=== PATIENT | male | born 1985 | race Two or more races ===

== ENCOUNTER 2024-10-02 10:31 | Emergency (ER) | payer MEDICAID, SELFPAY ==
[2024-10-02 10:38] VITALS: BP 152/91; PULSE 75; RESP 18; TEMP 36.4; O2SAT 98; BMI 29.8
--- NOTE | 2024-10-02 10:42 | XR_ITS ---
Examination: CT abdomen and pelvis without contrast. Coronal 3-D reconstructions. Sagittal 2-D reconstructions. Date and time of exam:October 02, 2024 1117 hours INDICATIONS: Left-sided flank pain painful urination today CTDI: vol (mGy): 7.88 DLP: (mGycm): 493 Technique: Axial images of the abdomen have been obtained, 3 mm slice thickness Intravenous contrast material has not been administered. Low dose protocols were performed. One or more of the following dose reduction techniques were used; automated exposure control, adjustment of the mA and/or KV according to patient size, use of iterative reconstruction technique. Findings: Diffuse fatty infiltration throughout the liver no focal liver or splenic lesions No gallstones No pancreatic or adrenal mass No renal or ureteral calculi, no hydronephrosis Aorta normal size Normal appendix No bowel obstruction Scattered colonic diverticulosis Contracted urinary bladder IMPRESSION: No renal or ureteral calculi, no hydronephrosis Normal appendix
--- NOTE | 2024-10-02 10:47 | EDRME_ITS ---
Rapid Medical Screening Exam [facility] Arrival date/time: 10/02/24 10:31 38-year-old male presents to the emergency department for complaint of left flank pain with associated nausea. Patient ports symptoms intermittently for the last few months pain worse today Chief Complaint: Urogenital-Male Vital signs: Vital Signs Temperature 97.6 F 10/02/24 10:38 Pulse Rate 75 10/02/24 10:38 Respiratory Rate 18 10/02/24 10:38 Blood Pressure 152/91 H 10/02/24 10:38 Pulse Oximetry (%) 98 10/02/24 10:38 Oxygen Delivery Method Room Air 10/02/24 10:38
[2024-10-02] MEDS: KETOROLAC INJ 30 MG/ML VIAL IM (10:54)
[2024-10-02] MEDS: ONDANSETRON ODT 4 MG TABRAP PO (10:55)
[2024-10-02 11:21] LABS: Basophils % (Auto) 1 % (0-2.5); Eosinophils # (Auto) 0.1 Thou/mm3 (0.0-0.5); Eosinophils % (Auto) 1 % (0-10); Hematocrit 42.4 % (41.0-53.0); Hemoglobin 15.4 g/dL (13.5-16.0); Immature Granulocytes % (Auto) 1 % (0-0); Immature Granulocytes Auto 0.04 Thou/mm3 (0.00-0.00); Lymphocytes % (Auto) 11 % (10-50); Mean Corpuscular HGB Conc 36.3 g/dl (31.0-37.0); Mean Corpuscular Hemoglobin 29.9 pg (25.0-35.0); Mean Corpuscular Volume 82 fL (80-100); Monocytes # (Auto) 0.7 Thou/mm3 (0.0-0.8); Monocytes % (Auto) 7 % (0-12); Neutrophils % (Auto) 79 % (37-80); Nucleated Red Blood Cell % 0 /100 WBC (0); Platelet Count 221 Thou/mm3 (140-440); RDW Standard Deviation 37.2 fL (35.1-43.9); Red Blood Count 5.15 Miln/mm3 (4.50-5.90); White Blood Count 8.8 Thou/mm3 (3.8-10.6)
[2024-10-02 11:33] LABS: Alanine Aminotransferase 86 U/L (10-49); Albumin/Globulin Ratio 1.6 (1.2-2.2); Alkaline Phosphatase 103 U/L (46-116); Anion Gap 10 (7-16); Aspartate Amino Transferase 51 U/L (0-34); BUN/Creatinine Ratio 14 Ratio (12-20); Bilirubin,Total 0.8 mg/dL (0.3-1.2); Blood Urea Nitrogen 13 mg/dL (9-23); Calcium 9.2 mg/dL (8.3-10.6); Calcium (Corrected) 9.2 mg/dL (8.5-10.1); Chloride 103 mMol/L (98-107); Creatinine (Component) 0.9 mg/dL (0.6-1.3); Estimated Creatinine Clearance 107.2 mL/min (>60); Globulin 3.1 gm/dL (2.3-3.5); Glucose 108 mg/dL (74-106); Lipase 30 U/L (12-53); Osmolality,Calculated 280 (275-295); Potassium 3.7 mMol/L (3.4-5.1); Sodium 140 mMol/L (136-145); Total Protein 8.1 gm/dL (5.7-8.2); eGFR > 60 See Note
[2024-10-02 11:40] LABS: Collection Type, Urine Clean Catch; Squamous Epithelial Cell,Urine 0 /hpf (0-5)
[2024-10-02 11:49] LABS: Bilirubin,Urine Negative (Negative); Blood,Urine 2+ (Negative); Clarity,Urine Clear (Clear/Hazy); Color,Urine Yellow (Lt Yel-Yel); Culture Indicated,Urine Not Indicated; Glucose, Urine Negative (Negative); Ketones,Urine Negative (Negative); Leukocyte Esterase,Urine Negative (Negative); Nitrite,Urine Negative (Negative); Protein,Urine 1+ (Neg - Trace); RBC,Urine 95 /hpf (0-3); Specific Gravity,Urine 1.029 (1.001-1.035); Urobilinogen,Urine Negative mg/dL (0.0-1.0); WBC,Urine 3 /hpf (0-5)
--- NOTE | 2024-10-02 12:03 | EDNOTE_ITS ---
ED Male Genitalurinary RME/HPI General Chief complaint: Urogenital-Male Stated complaint: LEFT KIDNEY PAIN X 2 HOURS Time Seen by Provider: 10/02/24 12:03 Arrival date/time: 10/02/24 10:31 38-year-old male presents to the emergency department for complaint of left flank pain with associated nausea. Patient ports symptoms intermittently for the last few months pain worse today Limitations: no limitations RME / HPI RME / HPI Narrative: 10/02/24 10:31 38-year-old male presents to the emergency department for complaint of left flank pain with associated nausea. Patient ports symptoms intermittently for the last few months pain worse today Related Data Previous Rx's ?Medication ?Instructions ?Recorded albuterol sulfate 90 mcg/actuation 1 - 2 puff inhalati on Q6HR PRN 03/06/17 aerosol inhaler (ProAir HFA) WHEEZING #1 inh doxycycline monohydrate 100 mg 100 mg PO BID #20 caps 03/06/17 capsule albuterol sulfate 90 mcg/actuation 2 puff inhalation Q 6H PRN 04/17/23 aerosol inhaler (Ventolin HFA) shortness of breath or wheezing #8.5 grams benzonatate 100 mg capsule 100 mg PO TID #14 caps 12/0 09/04 cyclobenzaprine 10 mg tablet 10 mg PO TID PRN muscle s pasm 10 10/02/24 days #30 tab-caps ibuprofen 800 mg tablet 800 mg PO TID PRN pain #30 t abs 10/02/24 Allergies Allergy/AdvReac Type Severity Reaction Status Date / Time NKA* Allergy Uncoded 10/02/24 10:35 Review of Systems Review of Systems Systems Reviewed: All systems reviewed, normal except as documented Constitutional Constitutional: Reports system reviewed and no additional complaints, except as documented, Denies fever(s) and Denies headache(s) Eyes Eyes: Reports system reviewed and no additional complaints, except as documented and Denies blurry vision ENT Ears, Nose, Mouth, and Throat: Reports system reviewed and no additional complaints, except as documented, Denies headache(s), Denies nasal congestion and Denies nasal discharge Cardiovascular Cardiovascular: Reports system reviewed and no additional complaints, except as documented, Denies chest pain and Denies dyspnea Respiratory Respiratory: Reports system reviewed and no additional complaints, except as documented, Denies chest congestion, Denies cough and Denies dyspnea Gastrointestinal Gastrointestinal: Reports system reviewed and no additional complaints, except as documented and Denies abdominal pain Musculoskeletal Musculoskeletal: Reports system reviewed and no additional complaints, except as documented and Reports back pain Integumentary/Breasts Skin/Breast: Reports system reviewed and no additional complaints, except as documented and Denies rash Neurologic Neurologic: Reports system reviewed and no additional complaints, except as documented, Reports as per HPI and Denies headache(s) Past Medical History Social History SMOKING STATUS: Never smoker ED Exam General Limitations: Present no limitations General appearance: Present alert and in no apparent distress Head Head exam: Present atraumatic Eye Eye exam: Present normal appearance, PERRL and EOMI ENT ENT exam: Present normal exam, normal oropharynx and mucous membranes moist Neck Neck exam: Present normal inspection, full ROM and trachea midline Chest Chest inspection: Present normal inspection and symmetric chest wall rise Respiratory Respiratory exam: Present normal lung sounds bilaterally Cardiovascular Cardiovascular exam: Present regular rate, normal rhythm and normal heart sounds Abdominal Exam Abdominal exam: Present soft and normal bowel sounds; Absent distention or tenderness Extremities Exam Extremities exam: Present normal inspection and full ROM Back Exam Back exam: Present normal inspection, full ROM, tenderness, muscle spasm and paraspinal tenderness; Absent CVA tenderness (R) or CVA tenderness (L) Neurological Exam Neurological exam: Present alert, oriented X3 and CN II-XII intact Psychiatric Psychiatric exam: Present normal affect and normal mood Skin Skin exam: Present warm, dry, intact and normal color Course Quality Measures none Orders Category Date Time Status CT abdomen pelvis wo con Stat Exams 10/02/24 10:42 Completed CBC Stat Lab 10/02/24 11:02 Completed Comprehensive Metabolic Panel Stat Lab 10/02/24 11:02 Completed Lipase Stat Lab 10/02/24 11:02 Completed UA, C/S IF [Urinalysis, C/S if Indicated] Stat Lab 10/02/24 11:28 Completed Ketorolac Inj [Toradol Inj] Med 10/02/24 10:42 Discontinued 30 mg IM X1 ONE Ondansetron Odt [Zofran Odt] Med 10/02/24 10:42 Discontinued 4 mg PO X1 ONE Vital Signs Vital signs: Vital Signs Temperature 97.6 F 10/02/24 10:38 Pulse Rate 75 10/02/24 10:38 Respiratory Rate 18 10/02/24 10:38 Blood Pressure 152/91 H 05/21/25 10:38 Pulse Oximetry (%) 98 10/02/24 10:38 Oxygen Delivery Method Room Air 10/02/24 10:38 O2 saturation 98% room air within normal limits Urogenital - Male MDM Narrative MDM Narrative:: 38-year-old male presents to the emergency department for complaint of left flank pain with associated nausea. Patient ports symptoms intermittently for the last few months pain worse today Patient reports no chest pain no shortness of breath no headache dizziness or weakness On exam patient well-appearing patient does not appear toxic in no acute distress Lab work and imaging obtained no acute emergent findings noted Patient given pain medication here Patient discharged home in no distress to follow-up with primary care doctor in the next 24 to 48 hours and for any worsening symptoms to return to the ER immediately Patient data External records reviewed:: [facility] previous records Clinical information provided by:: patient Social determinants that could affect healthcare access:: none Patient has the following chronic illnesses:: None How is presenting disease/condition affected by chronic disease/condition?: no chronic disease Evaluation data The following diagnostics were reviewed and interpreted by me:: lab results and radiology exam(s) Lab and/or radiology exams considered but not ordered:: Labs radiology obtained Interpretation Summary: Reviewed by me Medications / Prescriptions Medications or Prescriptions considered but not ordered:: Given Medication administrations:: Medication Administration History Discontinued Medications Ketorolac Tromethamine (Ketorolac Inj 30 Mg/Ml Vial) 30 mg IM X1 ONE Stop: 10/02/24 10:43 Last Admin: 10/02/24 10:54 Dose: 30 mg Documented By: SAWYER Ondansetron HCl (Ondansetron Odt 4 Mg Tabrap) 4 mg PO X1 ONE; Protocol Stop: 10/02/24 10:43 Last Admin: 10/02/24 10:55 Dose: 4 mg Documented By: TM Given Consultations Consultation(s) initiated? (list below): No Diagnosis Urogenital Male Differential Diagnosis: urinary tract infection, urethritis and epididymitis Most likely diagnosis given after review of the tests above:: Flank pain Admission Indicated Admission indicated?: not indicated Admission Request Was there a request for admission?: No Disposition Plan Disposition Plan: Discharge Discharge Attestation Discharge Attestation: The patient and all family members were given an opportunity to ask questions and understood the discharge instructions. Discharge instructions specifically effects, indications for sooner follow up or return to the emergency department, and the expected course of current diagnosis. Patient condition: Stable Discharge Plan Plan Patient Disposition: HOME (Self Care) Discharge Disposition comment: Stable Prescriptions/Referrals Prescriptions/Med Rec: New cyclobenzaprine 10 mg tablet 10 mg PO TID PRN (Reason: muscle spasm) 10 Days Qty: 30 0RF ibuprofen 800 mg tablet 800 mg PO TID PRN (Reason: pain) Qty: 30 0RF No Action doxycycline monohydrate 100 MG capsule 100 mg PO BID Qty: 20 0RF albuterol sulfate [ProAir HFA] 8.5 GM HFA aerosol inhaler 1 - 2 puff Inhalation Q6HR PRN (Reason: WHEEZING) Qty: 1 0RF Rx Instructions: Please give and use spacer benzonatate 100 mg capsule 100 mg PO TID Qty: 14 0RF albuterol sulfate [Ventolin HFA] 90 mcg/actuation HFA aerosol inhaler 2 puff inhalation Q6H PRN (Reason: shortness of breath or wheezing) Qty: 8.5 0RF Referrals: David Jensen MD [Primary Care Provider] - 10/03/24 Problem List Clinical Impression: Back pain Patient/Caregiver Discharge Instructions Education Materials: Back Safety: Bending Additional Instructions: Please follow up with your primary care doctor in the next 24-48hrs for any worsening symptoms return here immediately Print Language: Honduran Stand Alone Forms: Niesha Award Info., Work/School Release, Patient Portal Info Letter PA/ANA Supervising Physician CHANA/ANA Supervising Physician: Dr martino
[2024-10-02 12:45] VITALS: BP 127/75; PULSE 63; RESP 17; TEMP 36.5; O2SAT 99
== END 2024-10-02 12:49 | disposition home or self-care (01) ==
PROVIDERS: Nurse Practitioner Primary Care; Emergency Provider Emergency Medicine; PCP Family Medicine
DX: M54.9 Dorsalgia, unspecified (principal); R10.9 Unspecified abdominal pain
CPT/HCPCS: 36415; 74176; 80053; 81001; 83690; 85025; 96372; 99284; J1885; Q0162